=== PATIENT | male | born 1995 | race Hispanic/Latino ===

== ENCOUNTER → 2019-06-23 15:22 | Outpatient (CLI) | payer OTHER, SELFPAY ==
--- NOTE | 2019-06-23 15:29 | DI.RAD.S_ITS ---
PROCEDURE: XR FINGER RT MIN 2V INDICATIONS: Possible glass on index finger at MIP joint TECHNIQUE: AP hand, 2 views of the 2nd finger(s) acquired. COMPARISON: None. FINDINGS: Bones: No fractures or dislocations. Question of prior ulnar styloid fracture. No suspicious bony lesions. Soft tissues: No suspicious soft tissue calcifications. IMPRESSION: No radiopaque foreign body identified. Dictated by: Avery Pryor M.D. on 06/23/2019 at 16:09 Approved by: Avery Pryor M.D. on 06/23/2019 at 16:10
== END ==
PROVIDERS: Referring Provider Nurse Practitioner; Visit Provider Nurse Practitioner
DX: M79.5 Residual foreign body in soft tissue (principal)
CPT/HCPCS: 73140

== ENCOUNTER 2023-03-12 00:45 | Emergency (ER) | payer BC, SELFPAY ==
[2023-03-12 01:02] VITALS: BP 124/79; PULSE 63; RESP 20; TEMP 37; O2SAT 98; BMI 27.2
[2023-03-12] MEDS: SODIUM CHLORIDE 0.9% 1,000 ML 1000 ML IV (01:08)
[2023-03-12 01:14] LABS: Add Manual Diff / Slide Review NO; Basophils Absolute Auto 100 /uL (0-100); Eosinophils Absolute Auto 400 /uL (0-450); Eosinophils Percent Auto 3.2 % (2-4); Hematocrit 44.2 % (41-53); Hemoglobin 15.4 g/dL (13.5-17.5); Lymphocytes Absolute Auto 5500 /uL (1100-4500); Lymphocytes Percent Auto 49.3 % (25-40); Mean Corpuscular HGB Conc 34.8 % (30-36); Monocytes Absolute Auto 700 /uL (0-900); Monocytes Percent Auto 6.5 % (3-14); Neutrophils Absolute Auto 4500 /uL (1500-7000); Platelet Count 274 X10^3/uL (150-400); Red Blood Cell Count 5.15 X10^6/uL (4.5-5.9); Red Cell Distribution Width 12.8 % (11.6-14.8); White Blood Cell Count 11.2 X10^3/uL (4.5-11.0)
[2023-03-12 01:20] LABS: BUN Creatinine Ratio 18.9 (6-22); Blood Urea Nitrogen 18 mg/dL (9-20); Calcium 9.6 mg/dL (8.4-10.2); Carbon Dioxide 27 mmol/L (22-32); Chloride 101 mmol/L (98-107); Estimated Glomerular Filt Rate > 60 mL/min (>60); Glucose 117 mg/dL (70-100); HEMOLYSIS < 15 (0-50); Potassium 3.9 mmol/L (3.4-5.1); Sodium 138 mmol/L (137-145)
--- NOTE | 2023-03-12 01:21 | ED_ITS ---
HPI - Syncope General Chief Complaint: Syncope Stated Complaint: passed out Time Seen by Provider: 03/12/23 00:49 Source: patient Mode of arrival: Ambulatory Limitations: no limitations History of Present Illness HPI narrative: Patient healthy 28-year-old male here as a patient brother when he passed out. He sought need a go into her arm and fell out of the chair walking his face. He did quickly return slightly pale diaphoretic. No seizure activity witnessed by multiple staff members. Not on antiplatelet or anticoagulation medication. He does have a small wound his chin but teeth feel intact. No injury. He reports that he dinner around 6:00 a.m. that he has been drinking regularly. But does feel a little lightheaded with needles and blood. Related Data Allergies Allergy/AdvReac Type Severity Reaction Status Date / Time No Known Allergies Allergy Uncoded 08/15/17 12:44 Patient History Social History Smoking Status: Unknown if ever smoked Smoking Status: Unknown if ever smoked alcohol intake frequency: other Alcohol type: hard liquor Substance Use Type: does not use Exam Initial Vital Signs Initial Vital Signs: Vital Signs Temperature 98.6 F 03/12/23 01:02 Pulse Rate 63 03/12/23 01:02 Respiratory Rate 20 03/12/23 01:02 Blood Pressure 124/79 03/12/23 01:02 Pulse Oximetry 98 03/12/23 01:02 Oxygen Delivery Method Room Air 03/12/23 01:02 GENERAL: Slightly pale diaphoretic headache 28-year-old male HEENT: Head atraumatic,EOMI, pupils reactive, face symmetric, moist mucous membranes CARDIOVASCULAR: Regular rate and rhythm without murmurs, rubs or gallops. RESPIRATORY: Breath sounds equal bilaterally, no wheezes rales or rhonchi. ABDOMEN: Soft, nontender. Normoactive bowel sounds all 4 quadrants. No guarding or rebound. EXTREMITIES: Normal range of motion, no clubbing or edema. Neurovascularly intact NEUROLOGICAL: Alert and oriented x4. SKIN: Warm, dry, no laceration, no petechiae, no rashes or lesions. Course Orders Ordered: ED Orders 03/12/23 00:49 EKG-12 Lead Stat 03/12/23 01:03 BMP [Basic Metabolic Panel] Stat CBC Auto Diff [Complete Blood Count AUTO DIFF] Stat Sodium Chloride (Normal Saline 0.9%) 1,000 mls @ 1,000 mls/hr IV BOLUS ONE Stop: 03/12/23 02:02 Last Admin: 03/12/23 01:08 Dose: 1,000 mls/hr Documented By: ADONAY Vital Signs Vital signs: Vital Signs - 8 hr 03/12/23 01:02 Temperature 98.6 F Pulse Rate 63 Respiratory Rate 20 Blood Pressure 124/79 Pulse Oximetry 98 Oxygen Delivery Method Room Air MDM - Syncope Lab Data 03/12/23 00:51 03/12/23 00:51 Labs: Lab Results 03/12/23 Range/Units 00:51 WBC 11.2 H (4.5-11.0) X10^3/uL RBC 5.15 (4.5-5.9) X10^6/uL Hgb 15.4 (13.5-17.5) g/dL Hct 44.2 (41-53) % MCV 86.0 (80-100) fL MCH 30.0 (26-34) PG MCHC 34.8 (30-36) % RDW 12.8 (11.6-14.8) % Plt Count 274 (150-400) X10^3/uL Neut % (Auto) 40.0 L (50-75) % Lymph % (Auto) 49.3 H (25-40) % Atlantic % (Auto) 6.5 (3-14) % Eos % (Auto) 3.2 (2-4) % Baso % (Auto) 1.0 (0-2) % Neut # (Auto) 4500 (3334-1828) /uL Lymph # (Auto) 5500 H (5214-7488) /uL Atlantic # (Auto) 700 (0-900) /uL Eos # (Auto) 400 (0-450) /uL Baso # (Auto) 100 (0-100) /uL Point of Care Testing Glucose POC 85 ECG Data Interpretation: Sinus rhythm rate 58 AR interval 102 QRS [address] changes no T-wave inversions [facility] Narrative Medical decision making narrative: Patient likely had a vasovagal reaction after seeing a needle. No seizure activity no neurologic deficits. Quickly returned to normal. Glucose is within normal limits. Blood work has been reviewed overall reassuring without anemia or electrolyte abnormality. He is given a L fluid feeling much better. EKG does not show any abnormal intervals Discharge Plan Departure Patient Disposition: Home Clinical Impression: Vasovagal syncope Instructions: DI for Syncope in Adults (Fainting) Activity Restrictions/Additional Instructions: *You have been diagnosed with vasovagal *What to do: None while you are okay you passed out after seeing the needle. *Continue to take medications as directed *Follow up with your primary care provider in 2-3 days or call [phone] *Return to ER if you should have any new, worsening or concerning symptoms Stand Alone Forms: Patient Portal/API
[2023-03-12 01:43] VITALS: BP 117/71; PULSE 63; RESP 18; O2SAT 99
== END 2023-03-12 01:44 | disposition home or self-care (01) ==
PROVIDERS: Emergency Provider Emergency Medicine
DX: R55 Syncope and collapse (principal)
CPT/HCPCS: 36415; 80048; 82962; 85025; 93005; 99283; 99284